=== PATIENT | female | born 1985 | race Caucasian/White ===

== ENCOUNTER 2017-01-26 09:05 | Inpatient (IN) | payer BC ==
[~2017-01-26] VITALS: Ht 160 cm; Wt 90.7 kg
--- NOTE | 2017-01-28 09:09 | HP ---
ADMIT: 01/26/2017 RM/LOC: 223 [facility] MR#: [id number] [id number] [place], [place] [address] [place] [address] Pre-OP History and Physical SEX: F AGE: 31 : 1985 DATE OF SERVICE: REASON FOR ADMISSION: Repeat section. HISTORY OF PRESENT ILLNESS: The patient is a 31-year-old, 2, para 1-0- 0-1 female who presents at 39 weeks 2 days for a scheduled repeat section. She has had one prior section for nonreassuring heart tones in 2013. She has no other chronic medical issues, hospitalizations, or surgeries. Has had normal care beginning at 12 weeks gestation. Dates are by an early ultrasound. She is blood type A negative, antibody screen negative. Syphilis negative. Hepatitis B surface antigen negative. Rubella immune. Group B strep negative. Gonorrhea and Chlamydia were negative. Has had mild anemia through the , but is tolerating ferrous sulfate. MEDICATIONS: 1. Ferrous sulfate 325 mg daily. 2. A vitamin daily. ALLERGIES: PENICILLIN AND SULFA. 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 She is and lives with her spouse and their first child. No alcohol, tobacco, or drug use. FAMILY HISTORY: Significant for hypertension in her mother and father. No other chronic medical issues in the family. PHYSICAL EXAMINATION: VITAL SIGNS: Patient is afebrile. Last blood pressure is 124/80, weight 202. heart tones were at 150. She had no lower extremity edema. Cervix was 1 cm, but still thick and high. HEART: Regular without murmurs. LUNGS: Sound clear bilaterally. ASSESSMENT: 1. Intrauterine at 39 weeks 2 days. 2. History of prior section. 3. Rh (Rhesus) negative. PLAN: The patient will proceed with a repeat low transverse section. Dr. Douglas Barnes has seen and consulted with the patient as well and she agrees to proceed. Risks, benefits, and alternatives of the procedure have been explained, and informed consent was signed. Kenia Martínez MD/ anastacia JOB #: [id number] CC: Kenia Martínez, Attending Physician ADMIT: 01/26/2017 RM/LOC: 223 [facility] MR#: [id number] [address] [address] [place] [address] Pre-OP History and Physical SEX: F AGE: 31 : 1985 Kenia Martínez, Family Physician
[2017-01-29] MEDS ORDERED: FLONASE 0.05% D16 GM NS (06:40)
[2017-01-29] MEDS ORDERED: COLACE-DPS100 MG PO (06:40)
[2017-01-29] MEDS ORDERED: MYLICON DPS80 MG PO (06:40)
[2017-01-29] MEDS ORDERED: PRENATAL VIT1 TAB PO (06:40)
[2017-01-29] MEDS ORDERED: LAN-O-SOOTHE7 GM TP (06:41)
[2017-01-29] MEDS ORDERED: PERCOCET 5 DPS1 TAB PO (06:41)
[2017-01-29] MEDS ORDERED: MOTRIN-DPS800 MG PO (06:41)
--- NOTE | 2017-02-10 07:57 | DS ---
ADMIT: 01/26/2017 RM/LOC: 223 [facility] MR#: [id number] [address] [address] [place] [address] General Discharge Summary SEX: F AGE: 31 : 1985 ADMISSION DATE: 01/26/2017 DISCHARGE DATE: 01/28/2017 FINAL DIAGNOSES: 1. Term intrauterine at 39 weeks' gestation. 2. History of prior section. 3. Mild chronic iron deficiency anemia. 4. Allergic rhinitis. REASON FOR ADMISSION: The patient is a 31-year-old, 2, para 1-0-0-1 female who presented at 39 weeks and 2 days for scheduled repeat low- transverse section. Dr. Ulloa had been consulted and he is the surgeon performing the procedure. HOSPITAL COURSE: The patient underwent her repeat low transverse section on 01/26/2017, without complications. Delivered a live born female . Postop course was unremarkable. She was discharged home on postop day 2 on the following medications: 1. Colace 100 mg b.i.d. 2. Mylicon 80 mg t.i.d. p.r.n. 3. vitamin daily. 4. Flonase 2 sprays in each nostril daily. 5. Motrin 800 mg q.8 hours p.r.n. 6. Percocet 5, 1 to 2 every 4 hours p.r.n. 7. Lansinoh to the nipples as needed. She will follow up with me in a week for an incision check and in 6 weeks for a exam. Kenia Martínez MD/ anastacia JOB #: [id number] CC: Kenia Martínez MD, Attending Physician Kenia Martínez MD, Family Physician
--- NOTE | 2017-03-10 09:58 | OR ---
ADMIT: 01/26/2017 RM/LOC: 223 [facility] MR#: [id number] [address] [address] [place] [address] Operative/Delivery Room Report SEX: F AGE: 31 : 1985 SURGERY DATE: 01/26/2017 SURGEON: Douglas Barnes MD DIRECTOR OF GRADUATE MEDICAL EDUCATION: 1. Kenia Martínez MD. 2. Promise Smith MD Resident. PREOPERATIVE DIAGNOSES: 1. Term intrauterine . 2. Previous section. POSTOPERATIVE DIAGNOSES: 1. Term intrauterine . 2. Previous section. PROCEDURE: Repeat low transverse section. INDICATIONS: The patient is a 31-year-old, 2, para 1-0-0-1, who presents to Labor and Delivery at 39 weeks 2 days gestation for scheduled repeat section. She had one prior section for non- reassuring heart tones. Her was uncomplicated. The patient has no chronic medical problems. FINDINGS: A viable female infant in the vertex position, 7 pounds 8 ounces, spontaneous cry, movement of all extremities. scores of 9 and 9. ANESTHESIA: Spinal. ESTIMATED BLOOD LOSS: 800 mL. COMPLICATIONS: None. DESCRIPTION OF PROCEDURE: The patient was taken the operating room, where she was prepped and draped in the usual fashion in the dorsal supine position with a leftward tilt. A Pfannenstiel skin incision was made with the scalpel and carried through sharply to the underlying layer of fascia. The fascia was nicked in the midline and the fascial incision was extended laterally with Preston scissors. The fascia was dissected off the underlying rectus muscles with a combination of electrocautery and Preston scissors. The rectus muscles were in the midline. The peritoneum was identified, tented up with the Fauzia clamps, and entered sharply with Preston scissors. The incision was then extended superiorly and inferiorly with good visualization of the bladder. Bladder flap was created with a combination of sharp and blunt dissection. Bladder blade was inserted. The uterus was nicked in the midline. The uterine incision was extended laterally with blunt digital dissection. The infant was delivered in the vertex position with no nuchal cord noted. Brief delay of cord clamping was allowed in the cord was clamped x2, cut, infant was handed off to the waiting nursing staff. The baby had ADMIT: 01/26/2017 RM/LOC: 223 [facility] MR#: [id number] [address] [address] [address] [place] [address] Operative/Delivery Room Report SEX: F AGE: 31 : 1985 spontaneous cry and movement of all 4 extremities. The placenta was delivered intact with normal appearance. The uterus was exteriorized and cleared of all clot and debris. The endometrial cavity was swept with a moist laparotomy sponge to remove any remaining products of conception. The hysterotomy was closed with a running, locked length of 0 Vicryl. Hemostasis was achieved with Bovie electrocautery. The abdominal cavity was suctioned and the uterus was returned to the patient's abdomen. The pericolic gutters were cleared of all clot and debris. The uterine incision was reinspected and noted to be hemostatic. Subfascial components were inspected and noted to also be hemostatic. The fascia was reapproximated with a single running lengths of 0 Vicryl. Subcutaneous tissue was inspected and noted to be hemostatic and then was re-approximated with interrupted sutures of 3-0 plain gut. The skin was closed with subcuticular marie. The patient tolerated the procedure well and was taken to the recovery room in stable condition. All sponge, instrument, needle counts were correct. Promise M Stoecker, MD Resident / Douglas Barnes MD / anastacia JOB #: [id number] CC: Kenia Martínez, Attending Physician Kenia Martínez, Family Physician
== END 2017-01-28 11:25 | disposition home or self-care (01) | DRG 766 ==
LOC: BC 09:05 → 2LDRP 09:05 → BC 01-31 08:00
PROVIDERS: ADMIT Family Medicine
DX: O34.211 Maternal care for low transverse scar from previous cesarean delivery (principal); D64.9 Anemia, unspecified; O99.02 Anemia complicating childbirth; O75.89 Other specified complications of labor and delivery; O99.52 Diseases of the respiratory system complicating childbirth; J30.9 Allergic rhinitis, unspecified; Z37.0 Single live birth; Z3A.39 39 weeks gestation of pregnancy